=== PATIENT | female | born 1980 | race Caucasian/White ===

== ENCOUNTER 2018-12-10 10:37 | Emergency (ER) | payer SELFPAY ==
[2018-12-10 11:37] LABS: Hemoglobin 13.5 g/dL (12.0-16.0); Mean Corpuscular HGB CONC 33.7 g/dL (32.0-36.0); Mean Corpuscular Hemoglobin 31.7 pg (27.0-31.0); Mean Corpuscular Volume 94.2 fL (78.0-98.0); Mean Platelet Volume 6.1 fL (7.4-10.4); Platelet Count 298 thou/uL (130-400); RBC Distribution Width 11.4 % (11.5-14.5); Red Blood Cell (RBC) Count 4.24 mill/uL (4.20-5.40); White Blood Cell (WBC) Count 7.8 thou/uL (4.8-10.8)
[2018-12-10 11:41] LABS: BHCG - Serum Negative (NEGATIVE); Pregs Control Background? CLEAR/WHITE (CLR/WHITE); Pregs Control Bar Appear? YES (CONTROL BAR)
--- NOTE | 2018-12-10 11:43 | ULT ---
US Gallbladder RUQ HISTORY: Right upper quadrant pain COMPARISON: None. FINDINGS: Real-time images of the right upper quadrant show a normal-appearing gallbladder. The commo n duct is 2 mm. The visualized liver parenchyma shows no focal findings. The liver measures 17 cm in length. Pancreas is fairly well imaged and normal. Right kidney is normal in size and not obstructed. IMPRESSION: Unremarkable right upper quadrant ultrasound
[2018-12-10 11:46] LABS: ALT (SGPT) 21 U/L (8-55); AST (SGOT) 23 U/L (5-34); Albumin 3.5 g/dL (3.5-5.0); Alkaline Phosphatase 41 U/L (40-150); Anion Gap 14 mmol/L (10-20); BUN (Urea Nitrogen) 8 mg/dL (7.0-18.7); Bilirubin, Total 0.2 mg/dL (0.2-1.2); Calc. Creatinine Clearance 0 mL/min (70-130); Calcium 8.6 mg/dL (7.8-10.44); Carbon Dioxide 23 mmol/L (22-29); Chloride 103 mmol/L (98-107); Estimated GFR-MDRD Greater than 90; Globulin 3.4 g/dL (2.4-3.5); Glucose 100 mg/dL (70-105); Lipase 11 U/L (8-78); Potassium 3.2 mmol/L (3.5-5.1); Protein, Total 6.9 g/dL (6.0-8.3); Sodium 137 mmol/L (136-145)
[2018-12-10 11:52] LABS: Band 15 % (5-11); Lymphocytes 16 % (21-51); MDiff Complete? YES; Monocytes 4 % (0-10); Neutrophil 60 % (42-75); Platelet Morphology Comment Appears Adequate; RBC Morphology Normal; Reactive Lymphocytes 4 % (0-10)
[2018-12-10 12:18] LABS: Bilirubin Small (Negative); Blood, Urine Negative (Negative); Clarity Clear (Clear); Glucose, Urine (Dipstick) Negative (Negative); Leukocyte Negative (Negative); Nitrite Negative (Negative); Protein, Urine (Dipstick) 100 mg/dL (Neg-Trace); Specific Gravity, Urine 1.025 (1.005-1.030)
--- NOTE | 2018-12-10 12:18 | RAD ---
AP VIEW CHEST: HISTORY: Right upper quadrant pain. FINDINGS: AP view chest demonstrates bilateral areas of chest densities, compatible with likely breast implants . No definite evidence of pneumonia or pneumothorax seen. Upright view of the chest demonstrates no ev idence of free intraperitoneal air. IMPRESSION: The chest is partially obscured due to breast implants. Difficult to completely exclude the possibil ity of pneumonia or other air space opacities due to the density. It may be worth while to consider obtaining a posterior-anterior and lateral views of the chest, to better characterize the lungs. POS: C
[2018-12-10 12:23] LABS: Bacteria/HPF Rare-Few HPF (None Seen); RBC/HPF None Seen HPF (0-3); WBC/HPF None Seen HPF (0-3)
== END 2018-12-10 12:51 | disposition home or self-care (01) ==
LOC: SCSER 10:37
DX: R10.11 Right upper quadrant pain (principal); R10.13 Epigastric pain; J06.9 Acute upper respiratory infection, unspecified; F41.9 Anxiety disorder, unspecified
CPT/HCPCS: 71045; 76705; 80053; 81003; 81015; 83690; 84703; 85025

== ENCOUNTER 2019-12-09 14:42 | Outpatient (CLI) | payer BC ==
--- NOTE | 2019-12-09 15:08 | RAD ---
Exam: Left foot first digit 3 views HISTORY: Patient dropped couch until last night. Pain. FINDINGS: Small tuft injury with minimal displacement. IMPRESSION: Minimally displaced tuft fracture.
== END 2019-12-09 14:43 | disposition home or self-care (01) ==
LOC: BICRAD 14:42
PROVIDERS: ATTEND Internal Medicine
DX: M79.675 Pain in left toe(s) (principal); S92.402A Displaced unspecified fracture of left great toe, initial encounter for closed fracture